=== PATIENT | female | born 1975 | race Caucasian/White ===

== ENCOUNTER 2021-06-10 13:57 | Emergency (ER) | payer BC, SELFPAY ==
[2021-06-10 13:58] VITALS: BP 169/105; PULSE 95; RESP 16; TEMP 37; O2SAT 98; BMI 26.8
--- NOTE | 2021-06-10 14:38 | EKG12_ITS ---
Test Reason : CP Blood Pressure : / mmHG Vent. Rate : 092 BPM Atrial Rate : 092 BPM P-R Int : 144 ms QRS Dur : 082 ms QT Int : 356 ms P-R-T Axes : 026 003 018 degrees QTc Int : 440 ms Normal sinus rhythm Low voltage QRS Confirmed by VÍCTOR STEPHENSON, STACEY ([id number]), multimedia editor MAURISIO SOTO ([id number]) on 06/14/2021 10:31:01 AM Referred By: DEA Confirmed By:STACEY RENEE MD
--- NOTE | 2021-06-10 14:38 | VDLE_ITS ---
Reason For Study: Swelling RIGHT LEFT GSV is normal. GSV is normal. CFV, FV and PopV are compressible. CFV, FV and PopV are compressible. T/P Trunk is compressible. T/P Trunk is compressible. PTV is compressible. PTV is compressible. RT PerV is compressible. LT PerV is compressible. Procedure This is a venous duplex using B-mode, color flow and spectral Doppler. Exam performed portable in ED. The exam was abbreviated due to the COVID 19 protocol. A preliminary report was called and/or faxed to [facility]. VL/Venous Duplex US - Julien Extrem Interpretation Summary No evidence for acute deep venous thrombosis bilateral lower extremities with p atent and compressible bilateral great saphenous veins. Abbreviated COVID-19 protocol uti lized Ordering Physician: Herminio Velazquez Referring Physician: Karma Reina Performed By: Carolina Johnson RVT
--- NOTE | 2021-06-10 15:24 | EDS_ITS ---
HPI History of Present Illness Chief Complaint: Shortness of Breath Informant: patient Onset/Context/Timing Onset: Weeks Context: gradual Timing: Intermittent Quality: Positive for Dyspnea on exertion; Negative for Orthopnea, PND and Wheezing Current Severity: Mild Maximum Severity: Mild Worsened by: Exertion and Coughing Relieved by: Nothing Associated Symptoms cough Narrative Narrative: 46-year-old female history of anxiety and prior DVT postoperatively. Patient is on no blood thinners currently. States that her recently had Covid tested positive she went to the urgent care today tested negative for Covid but told her about her chest heaviness over the last couple weeks and shortness of breath primarily with exertion in the center in emergency departmen t to be evaluated. She denies any nausea vomiting diarrhea denies any melena. Denies any fever or chills. She has had no hemoptysis nor any pleuritic chest pain. No leg pain or swelling. She did fly to and from [place] about a month ago. PE Risk Factors: Positive for Prior DVT or PE and Recent travel; Negative for Cancer, OCP + Smoking + > 35, Recent immobilization and Recent surgery Prior similar symptoms: No Recent Illness/Hospitalization: No PFSH PFSH Medical History Lab test negative for COVID-19 virus Home Medications cetirizine 10 mg capsule 10 mg PO DAILY PRN 06/10/21 [History Last Taken Unknown] Allergy/AdvReac Type Severity Reaction Status Date / Time Sulfa (Sulfonamide Allergy Hives Verified 06/10/21 14:01 Antibiotics) Surgical History H/O: hysterectomy Social History Smoking Status: Unknown if ever smoked ROS ROS ED ROS Narrative Denies recent illness other than coughing and chest pain. Along with shortness of breath. Review of Systems ROS Unobtainable: Denies due to encephalopathy Constitutional Constitutional ED: Denies chills or fever(s) Eyes Eyes: Denies change in vision ENT ENT ED: Denies ear pain or sore throat Cardiovascular Cardiovascular: Reports chest pain; Denies palpitations or racing heartbeat Respiratory/Chest Respiratory/Chest: Reports cough and dyspnea; Denies sputum Gastrointestinal Gastrointestinal: Denies abdominal pain, diarrhea, nausea or vomiting Genitourinary Genitourinary ED: Denies dysuria Musculoskeletal Musculoskeletal: Denies myalgias Integumentary Denies rash Neurologic Neurologic: Denies headache(s) Psychiatric Psychiatric: Denies depression Endocrine Endocrinology: Denies polyuria Hematologic/Lymphatic Hematologic/Lymphatic: Denies easy bruising Allergic/Immunologic Allergic/Immunologic ED: Denies urticaria EXAM Physical Exam Narrative Exam Narrative: Middle-aged female no acute distress vital signs stable afebrile pulse ox 98% on room air. HEENT exam unremarkable. Neck nontender no JVD. Lungs clear to auscultation bilaterally. Heart regular rhythm no murmur. Abdomen soft nontender. Extremities moves all 4. Calves nontender without edema or cords. Otherwise exam unremarkable. Const Vital Signs: 06/10/21 13:58 06/10/21 15:25 06/10/21 15:26 Temperature 98.6 F Temperature Source Temporal Pulse Rate 95 90 Respiratory Rate 16 17 Respiratory Effort Short of Breath Labored Respiratory Depth Normal Blood Pressure 169/105 H 165/105 H Blood Pressure Mean 126 125 Pulse Ox 98 97 Oxygen Delivery Method Room Air Room Air 06/10/21 17:00 Temperature Temperature Source Pulse Rate 92 Respiratory Rate 20 H Respiratory Effort Respiratory Depth Blood Pressure 162/105 H Blood Pressure Mean 124 Pulse Ox 98 Oxygen Delivery Method Room Air Positive well nourished and well developed; Negative for obese, cachectic, contractures or unkempt General Appearance ED: well developed and NAD; Negative for unkempt, cachectic or contractures Nutritional Appearance: Negative for cachectic or obese HEENT Reports moist mucous membranes atraumatic; Negative for trauma or tenderness Eyes PERRL and EOMs intact bilaterally Neck no lymphadenopathy, supple, no meningeal signs and no JVD General: Negative for tenderness Resp normal respiratory effort and clear to auscultation bilaterally Auscultation: Negative for rales, rhonchi or wheezes Cardio regular rate, regular rhythm, S1 normal heart sound, S2 normal heart sound and no murmurs GI non-tender, non-distended and no masses Auscultation: normoactive bowel sounds Palpation: soft; Negative for tender, guarding or rebound tenderness present Back/Spine no CVA tenderness and normal to inspection General Back: Negative for CVA tenderness Extremity normal to inspection General Extremety ED: Yes tenderness; Negative for edema General Extremity: Negative for edema Neuro oriented x3 Sensorium / Orientation: alert, oriented to person, oriented to place and oriented to time; Negative for confused or lethargic Motor Exam: strength 5/5 throughout Psych mental status grossly normal Appearance: Negative for unkempt Skin no wounds Lesions: no lesions Rashes: no rashes MDM MDM MDM Narrative Medical decision making narrative: Middle-aged female with chest pain rule out cardiac etiology versus PE. She has had a history of DVTs in the past that was postoperatively. She is also had a recent history of traveling to and from [place]. Repeat exam patient is doing well. Her labs are unremarkable she and I went ove r her results.. Chest x-ray is unremarkable. She will be discharged home with outpatient follow-up. Patient to follow-up with her primary care physician for possible outpatient stress testing and/or an echocardiogram. Her father had valvular heart disease I do not hear any murmur on repeat exam. Lab Data Attestation: I reviewed the patient's lab results. Lab results narrative: CBC White count 5. Hemoglobin 14.3. Platelets 174. Electrolytes show a gap of 6 normal BUN and creatinine. Glucose of 87. BNP is only 22. Troponin is 4. And D-dimer is 0.4. Chest x-ray negative. Ultrasound left lower extremities negative. Labs: Laboratory Results - last 24 hr 06/10/21 06/10/21 06/10/21 15:53 15:53 15:53 WBC 5.1 RBC 5.14 Hgb 14.3 Hct 43.1 MCV 83.9 MCH 27.8 MCHC 33.2 RDW Std Deviation 37.7 RDW Coeff of Tony 12.2 Plt Count 174 MPV 11.2 Immature Gran % (Auto) 0.800 Neut % (Auto) 78.0 H Lymph % (Auto) 9.9 L Beadle % (Auto) 9.9 Eos % (Auto) 0.4 Baso % (Auto) 1.0 Absolute Neuts (auto) 4.0 Absolute Lymphs (auto) 0.50 L Nucleated RBC % 0 Differential Comment SCANNED D-Dimer Quant (PE/DVT) Sodium 138 Potassium 3.5 Chloride 105 Carbon Dioxide 27.0 Anion Gap 6 BUN 13 Creatinine 0.71 Estim Creat Clear Calc 81.90 Est GFR (MDRD) Af Amer 114 Est GFR (MDRD) Non-Af 94 BUN/Creatinine Ratio 18.3 Glucose 87 Calcium 9.0 Troponin I High Sens 4 B-Natriuretic Peptide 22.4 06/10/21 15:53 WBC RBC Hgb Hct MCV MCH MCHC RDW Std Deviation RDW Coeff of Tony Plt Count MPV Immature Gran % (Auto) Neut % (Auto) Lymph % (Auto) Beadle % (Auto) Eos % (Auto) Baso % (Auto) Absolute Neuts (auto) Absolute Lymphs (auto) Nucleated RBC % Differential Comment D-Dimer Quant (PE/DVT) 0.40 Sodium Potassium Chloride Carbon Dioxide Anion Gap BUN Creatinine Estim Creat Clear Calc Est GFR (MDRD) Af Amer Est GFR (MDRD) Non-Af BUN/Creatinine Ratio Glucose Calcium Troponin I High Sens B-Natriuretic Peptide Radiography Chest X-Ray - ED: 1 View, Read by ED Physician, Heart, Lungs, Mediastinum, Bony Structures and No Acute Disease Diagnostic Testing: Clinical Impression(s) from Imaging Studies Venous Doppler Study 06/10/21 14:38 Interpretation Summary No evidence for acute deep venous thrombosis bilateral lower extremities with patent and compressible bilateral great saphenous veins. Abbreviated COVID-19 protocol utilized Ordering Physician: Herminio Velazquez Referring Physician: Karma Reina Performed By: Carolina Johnson RVT Chest X-Ray 06/10/21 15:55 IMPRESSION: No acute cardiopulmonary process. Electronically Signed: Jerald Godoy MD ([place]) at 16:11 EST , Service support , Chest x-ray 2 views AP and lateral interpreted by myself the radiologist shows no acute abnormality. She does have metallic piercings. No infiltrate. No CHF. No cardiomegaly. Radiologist agrees. Rhythm Strip Rhythm Strip: Sinus Rhythm Rate: 92 Ectopy: None EKG Initial EKG: Attestation: I personally reviewed and interpreted this EKG as follows: Interpretation: Sinus Rhythm and No Acute Injury Pattern Comments: Normal sinus rhythm rate of 92 no acute signs of TX or ischemia. No [id number]. Prior EKG tracings: not available for review Discharge Plan Triage Chief Complaint: Shortness of Breath Other Complaint: Edema ED Provider: Adiel Doherty Dx/Rx/DC Orders Clinical Impression: Acute dyspnea Instructions: ED Dyspnea Prescriptions: No Action Zyrtec 10 mg capsule 10 mg PO DAILY PRNRF: 0 Primary Care Provider: Karma Reina Referrals: Karma Reina DO [Primary Care Provider] - As soon as possible Activity Restrictions/Additional Instructions: Call and follow-up with your primary care physician soon as possible I strongly consider an outpatient stress test and/or an echocardiogram which be an ultrasound your heart to evaluate your valves and to see if there is any reason why you are getting short of breath. All your lab tests, chest x-ray and ultrasound today were normal. No signs of any heart problem or blood clots. That does not rule out things like valvular heart disease though. Disposition Disposition: Home, Self Care
[2021-06-10 15:26] VITALS: BP 165/105; PULSE 90; RESP 17; O2SAT 97
--- NOTE | 2021-06-10 15:55 | RAD_ITS ---
STUDY: X-RAY CHEST REASON FOR EXAM: Female, 46 years old. SOB TECHNIQUE: PA and lateral views of the chest. COMPARISON: None. FINDINGS: Bilateral nipple rings. The lungs are clear and expanded. There is no demonstrated pleural abnormality. Normal size heart. Normal mediastinum and vaughn. Normal visualized pulmonary arteries. Normal visualized aortic arch and descending thoracic aorta. Fusion hardware of the lumbar spine. Normal visualized ribs, clavicles, and shoulders. There is no demonstrated abnormality of the visualized soft tissue structures of the upper abdomen. RAD/Chest PA and Lateral IMPRESSION: No acute cardiopulmonary process. Electronically Signed: Jerald Godoy MD ([place]) at 16:11 EST , Service support ,
[2021-06-10 16:03] LABS: Basophil# 0.05 X10^3/uL; Eosinophil# 0.02 X10^3/uL; Eosinophils% 0.4 % (0-5); Hematocrit 43.1 % (37-47); Hemoglobin 14.3 g/dL (12.0-15.0); Lymphocyte % 9.9 % (19-41); Mean Corp Hgb Conc 33.2 g/dL (32-36); Mean Corpuscular Hgb 27.8 pg (27.0-32.0); Mean Corpuscular Volume 83.9 fL (81-99); Mean Platelet Vol. 11.2 fl (6.2-12.0); Monocyte% 9.9 % (0-10); NRBC Flagged by Analyzer 0 % (0-5); Neutrophil # 3.96 X10^3/uL (2.7-7.7); POSITIVE DIFFERENTIAL YES; Platelet Count 174 K/mm3 (150-450); RBC Distribution Width CV 12.2 % (11.6-14.6); RBC Distribution Width SD 37.7 fl (35.1-43.9); Red Blood Count 5.14 M/mm3 (4.2-5.4); White Blood Count 5.1 K/mm3 (4.4-11.0)
[2021-06-10 16:19] LABS: Differential Indicated SCAN CRITERIA MET
[2021-06-10 16:20] LABS: BNP,B-Type NATRIURETIC PEPTIDE 22.4 pg/mL (0-100)
[2021-06-10 16:24] LABS: Anion Gap 6 (5-15); BUN 13 mg/dL (7-18); BUN/Creat Ratio 18.3 RATIO (10-20); Chloride 105 mmol/L (98-107); Creatinine, Serum 0.71 mg/dL (0.55-1.02); Differential Comment SCANNED; EST Glomerular Filtration Rate 94 mL/min (>60); Est Glom Filt Rate - Afr Amer 114 mL/min (>60); Glucose 87 mg/dL (74-106); Potassium 3.5 mmol/L (3.5-5.1); Sodium Level 138 mmol/L (136-145); Troponin-I HS 4 pg/mL (3.0-54.0)
[2021-06-10 17:00] VITALS: BP 162/105; PULSE 92; RESP 20; O2SAT 98
--- NOTE | 2021-06-10 18:25 | ED.RN ---
pt left prior to d/c papers. unable to determine if pt removed iv herself. officer r[place] aware and attempting to contact pt.
--- NOTE | 2021-06-10 18:42 | ED.RN ---
officer raleigh spoke with pt, pt sent pictures of her arms with no iv access. officer raleigh visualized site where iv had been.
== END 2021-06-10 18:20 | disposition home or self-care (01) ==
PROVIDERS: Emergency Medicine; Emergency Provider Emergency Medicine; PCP Family Medicine
DX: R06.09 Other forms of dyspnea (principal); Z86.718 Personal history of other venous thrombosis and embolism
CPT/HCPCS: 71046; 80048; 83880; 84484; 85025; 85379; 93005; 93970; 99282